=== PATIENT | female | born 1950 | race Asian ===

== ENCOUNTER 2016-12-11 09:44 | Inpatient (IN) | payer MEDICARE, OTHER ==
[~2016-12-11] VITALS: Ht 162.6 cm; Wt 73.4 kg
[2016-12-11] VITALS (21 sets, daily range): BP systolic 123–156; BP diastolic 60–90; PULSE 66–82; RESP 12–20; Ht 162.6 cm; Wt 73.4 kg
[2016-12-11] MEDS ORDERED: POLYMYXIN B 500000 UNIT INJ ONE (12:02)
[2016-12-11] MEDS ORDERED: VANCOMYCIN 1 GM INJ ONE (12:02)
--- NOTE | 2016-12-11 12:56 | HPN ---
Date/Time of Note Date/Time of Note DATE: 12/11/16 TIME: 12:55 Interval H&P Admission Note Pt. seen H&P reviewed: No system changes ANNCY TAVERAS MD Dec 11, 2016 12:56
[2016-12-11] MEDS ORDERED: MIDAZOLAM 1 MG/ML 2 ML INJ ONE (13:07)
[2016-12-11] MEDS ORDERED: morphine SULFATE/PF (10 MG/10 ML) INJ ONE (13:08)
[2016-12-11] MEDS ORDERED: PROPOFOL 20 ML ONE (13:29)
[2016-12-11] MEDS ORDERED: LIDOCAINE 2% (SDV) 5 ML INJ ONE (13:29)
[2016-12-11] MEDS ORDERED: DEXAMETHASONE 4 MG/ML 1 ML INJ ONE (13:30)
[2016-12-11] MEDS ORDERED: METOCLOPRAMIDE 10 MG INJ ONE (13:30)
[2016-12-11] MEDS ORDERED: TRANEXAMIC ACID 1,000 MG in SOD CHLORIDE 0.9% 100 ML IV ONE (13:30)
[2016-12-11] MEDS ORDERED: ONDANSETRON 4 MG INJ ONE (13:30)
[2016-12-11] MEDS ORDERED: CEFAZOLIN 1 GM INJ ONE ×2 (13:33)
[2016-12-11] MEDS ORDERED: EPHEDrine SULFATE 50 MG/5 ML SYG ONE (13:42)
[2016-12-11] MEDS ORDERED: FENTAnyl 50 MCG/ML VIAL IV PRN (14:00)
[2016-12-11] MEDS ORDERED: DIPHENHYDRAMINE 50 MG INJ IV PRN ×2 (14:00→20:00)
[2016-12-11] MEDS ORDERED: MEPERIDINE 25 MG INJ IV PRN (14:00)
[2016-12-11] MEDS ORDERED: ONDANSETRON 4 MG INJ IV PRN (14:00)
[2016-12-11] MEDS ORDERED: PROCHLORPERAZINE 10 MG INJ IV PRN (14:00)
--- NOTE | 2016-12-11 14:22 | RADRPT ---
PROCEDURE: Right knee radiograph. CLINICAL INDICATION: Right knee pain. Preoperative. TECHNIQUE: Single frontal view of the right knee. COMPARISON: None. FINDINGS: There are degenerative changes of the right knee with medial and lateral joint compartment narrowing and osteophytes. There is no fracture or dislocation. IMPRESSION: 1. Moderate degenerative changes of the right knee. 2. Limited single frontal view. RPTAT: QQ .Corky Hagen MD, MD Date Time Electronically viewed and signed by .Corky Hagen MD, on 12/11/2016 14:22 .R/
--- NOTE | 2016-12-11 14:24 | RADRPT ---
PROCEDURE: Left knee radiograph. CLINICAL INDICATION: Left knee pain. Preoperative. TECHNIQUE: Single frontal view of the left knee. COMPARISON: None. FINDINGS: There is a left knee total arthroplasty which appears satisfactory with no evidence of loosening. T here is no fracture or dislocation. IMPRESSION: 1. Left knee total arthroplasty which appears satisfactory. 2. Otherwise normal limited single frontal view of the left knee. RPTAT: QQ .Corky Hagen MD, MD Date Time Electronically viewed and signed by .Corky Hagen MD, on 12/11/2016 14:24 .R/
[2016-12-11] MEDS ORDERED: CEFAZOLIN 1 GM/50 ML (PMX) 50 ML IVPB ONE (15:53)
[2016-12-11] MEDS: HYDROmorphONE (0.2 MG/ML) 10ML SYG IV PRN ×2 (15:56→16:32)
[2016-12-11] MEDS: CEFAZOLIN 1 GM/50 ML (PMX) 50 ML IVPB SCH (15:56)
[2016-12-11] MEDS ORDERED: HYDROCODONE/APAP (10/325) TAB PO PRN ×2 (16:00)
[2016-12-11] MEDS ORDERED: HYDROCODONE/APAP (7.5/325) TAB PO PRN (16:30)
[2016-12-11] MEDS: DEXTROSE 5%-LR 1,000 ML IV SCH (17:55)
[2016-12-11] MEDS ORDERED: HYDROmorphONE 1 MG/ML SYG IV PRN (18:22)
[2016-12-11] MEDS ORDERED: NALOXONE (0.4 MG/ML) INJ IV PRN (18:23)
[2016-12-11] MEDS ORDERED: NALBUPHINE HCL (10 MG/1 ML) INJ IV PRN (18:23)
[2016-12-11] MEDS: HYDROmorphONE 1 MG/ML SYG IV PRN (18:31)
[2016-12-11] MEDS ORDERED: BISACODYL 10 MG SUPP PR PRN (19:30)
[2016-12-11] MEDS ORDERED: NACL 0.9% 3 ML SYG IV SCH (19:30)
[2016-12-11] MEDS ORDERED: DOCUSATE SODIUM 100 MG CAP PO PRN (19:30)
[2016-12-11] MEDS ORDERED: MAGNESIUM HYDROXIDE 30ML CUP PO PRN (19:30)
[2016-12-11] MEDS: FAMOTIDINE 20 MG TAB PO SCH (20:49)
[2016-12-11] MEDS: ACETAMINOPHEN 325 MG TAB PO PRN (20:49)
[2016-12-11] MEDS: ONDANSETRON 4 MG INJ IV PRN (20:54)
[2016-12-12] MEDS: DEXTROSE 5%-LR 1,000 ML IV SCH ×3 (02:37→17:22)
[2016-12-12] MEDS: CEFAZOLIN 1 GM/50 ML (PMX) 50 ML IVPB SCH ×3 (04:49→21:25)
[2016-12-12] MEDS: HYDROmorphONE 1 MG/ML SYG IV PRN (04:52)
[2016-12-12] MEDS: ONDANSETRON 4 MG INJ IV PRN (04:52)
[2016-12-12 05:02] LABS: ADD SCAN DIFF NO
[2016-12-12 05:05] LABS: ABNORMAL IP MESSAGE 1; BASOPHILS % 0.1 % (0.0-2.0); HEMATOCRIT 35.2 % (37.0-47.0); HEMOGLOBIN 11.1 g/dl (12.0-16.0); LYMPHOCYTES # 0.6 10^3/ul (0.8-2.9); LYMPHOCYTES % 6.6 % (15.0-51.0); MEAN CORPUSCULAR HEMOGLOBIN 26.8 pg (29.0-33.0); MEAN CORPUSCULAR HGB CONC 31.5 g/dl (32.0-37.0); MEAN PLATELET VOLUME 9.5 fl (7.4-10.4); MONOCYTE # 0.4 10^3/ul (0.3-0.9); MONOCYTES % 4.5 % (0.0-11.0); NEUTROPHIL # 7.5 10^3/ul (1.6-7.5); NEUTROPHILS % 88.4 % (39.0-77.0); PLATELET COUNT 204 10^3/UL (140-415); RED BLOOD COUNT 4.14 10^6/ul (4.20-5.40); WHITE BLOOD COUNT 8.5 10^3/ul (4.8-10.8)
[2016-12-12 05:21] LABS: POTASSIUM 4.2 mmol/L (3.5-5.1)
[2016-12-12 05:23] LABS: CREATININE 0.6 mg/dl (0.44-1.00)
[2016-12-12 05:24] LABS: PHOSPHORUS 3.3 mg/dl (2.5-4.9)
[2016-12-12 05:25] LABS: CALCIUM 8.3 mg/dl (8.4-10.2); MAGNESIUM 1.9 mg/dl (1.7-2.5)
[2016-12-12 05:48] VITALS: BP 123/60; PULSE 71
[2016-12-12 08:14] VITALS: BP 122/58; RESP 16
--- NOTE | 2016-12-12 08:49 | OPR ---
DATE OF OPERATION: 12/11/2016 SURGEON: Dr. Castaneda SAUSAGE MAKER: ESTEPHANIA Jacobs ANESTHESIA: Regional, plus general. PREOPERATIVE DIAGNOSIS: Severe right knee osteoarthritis. POSTOPERATIVE DIAGNOSIS: Severe right knee osteoarthritis. PROCEDURE PERFORMED: Left total knee replacement arthroplasty using Leal and Nephew posterior stab ilized implant with size 4, a size 2 tibia, a 9-mm liner, a 23-mm patellar button. The compon ents fixed with antibiotic impregnated cement. ESTIMATED BLOOD LOSS: 200 mL. TOURNIQUET TIME: 55 minutes. COMPLICATIONS: None. PROCEDURE: The patient taken to the operating room and general anesthetic given, intubation. A spi nal block was also given. Tourniquet was applied to the right thigh, the right leg was prepped and draped in the usual sterile manner, exsanguinated with an Esmarch bandage, and tourniquet inflated t o 300 mmHg. An anterior incision was made and a medial arthrotomy performed. Severe osteoarthritis was noted in all compartments. The patella was prepared for a 23-mm button. The femur was prepare d with the internal intramedullary guide for size 4 posterior stabilizer and the tibia for a size 2. The joint space was measured and 9 and 11 mm liners were attempted. The 9 mm revealed full extensi on, stable medial and lateral stressing. The 11 mm was too tight. Definitive components were broug ht in. Bone was irrigated with pulsatile lavage. Hemostasis was ascertained using cautery. Compon ent was inserted. Excessive cement was removed meticulously. Tourniquet was deflated. Hemostasis w as ascertained. Good patellar tracking noted. Autotransfusion drain was placed into the joint. Ar throtomy was closed with #2 FiberWire sutures and 0 Vicryl. Skin was closed with shree. Compress ion bandage was applied. Anesthetic was reversed. The patient was taken to recovery in stable cond ition Dictated By: NANCY MCDERMOTT/[place] Conf#: [id number] DID#: [id number]
[2016-12-12] MEDS: FAMOTIDINE 20 MG TAB PO SCH ×2 (09:01→21:25)
--- NOTE | 2016-12-12 09:52 | PN ---
Date/Time of Note Date/Time of Note DATE: 12/12/16 TIME: 09:49 Assessment/Plan VTE Prophylaxis VTE Prophylaxis Intervention: SCD's Lines/Catheters IV Catheter Type (from Nrsg): Peripheral IV Urinary Cath still in place: Yes Reason Cath still needed: other (indicate) (pain, nausea) Assessment/Plan Assessment/Plan [facility] 66-year-old woman familiar to me from hospitalization last year, now day 1 s/p total knee arthroplasty. Moderate nausea this morning, possibly related to the Dilaudid. * Additional dose of Zofran 4mg IV now. * Switch to Zofran 8mg IV q6h * Continue Dilaudid for now * Physical therapy per protocol * Anticoagulation per Dr. Castaneda's routine. Lizette Villegas MD PhD [phone] Subjective 24 Hr Interval Summary Free Text/Dictation Very nauseated this morning, mild pain but responsive to Dilaudid 0.4mg IV. No bowel movement yet. Exam/Review of Systems Vital Signs Vitals Vital Signs Date Time Temp Pulse Resp B/P Pulse Ox O2 Delivery O2 Flow Rate FiO2 12/12/16 08:14 98.3 72 16 122/58 99 12/12/16 05:48 Nasal Cannula 2.0 Intake and Output 12/11/16 12/11/16 12/12/16 15:00 23:00 07:00 Intake Total 1400 ml 1840 ml Output Total 210 ml 1460 ml Balance -210 ml 1400 ml 380 ml Exam Constitutional: alert, oriented, well developed Psych: anxiety, other (nauseated) Head: atraumatic, normocephalic Eyes: EOMI, nl conjunctiva ENMT: mucosa pink and moist Neck: non-tender, supple, No jvd, No masses, No nuchal rigidity, No thyromegaly Respiratory: clear to auscultation, normal air movement Cardiovascular: nl pulses, regular rate and rhythm Gastrointestinal: bowel sounds, nl liver, spleen, non-tender, soft, No ascites, No distended, No firm, No hepatomegaly, No mass, No rebound or guarding, No splenomegaly, No tender Extremities: normal pulses Neurological: 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 II-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, DTR's symmetric, nl mental status, nl speech, nl strength Skin: nl turgor, No diaphoresis, No ecchymosis, No laceration, No puncture, No rash or lesions Lymph: nl lymph nodes Results Result Diagram: 12/12/16 0433 12/12/16 0433 Results 24 hrs Laboratory Tests Test 12/12/16 04:33 White Blood Count 8.5 Red Blood Count 4.14 L Hemoglobin 11.1 L Hematocrit 35.2 L Mean Corpuscular Volume 85.0 Mean Corpuscular Hemoglobin 26.8 L Mean Corpuscular Hemoglobin Concent 31.5 L Red Cell Distribution Width 13.0 Platelet Count 204 Mean Platelet Volume 9.5 Neutrophils % 88.4 H Lymphocytes % 6.6 L Monocytes % 4.5 Eosinophils % 0.0 Basophils % 0.1 Nucleated Red Blood Cells % 0.0 Neutrophils # 7.5 Lymphocytes # 0.6 L Monocytes # 0.4 Eosinophils # 0.0 Basophils # 0.0 Nucleated Red Blood Cells # 0.0 Sodium Level 140 Potassium Level 4.2 Chloride Level 103 Carbon Dioxide Level 26 Anion Gap 15 Blood Urea Nitrogen 14 Creatinine 0.60 Glucose Level 158 Calcium Level 8.3 L Phosphorus Level 3.3 Magnesium Level 1.9 Medications Medications Current Medications Hydromorphone HCl (Dilaudid) 0.4 mg Q2H PRN IV PAIN LEVEL 1-5 Last administered on 12/12/16 04:52; Admin Dose 0.4 MG; Start 12/11/16 at 18:22; Stop 12/12/16 at 13:19 Hydromorphone HCl (Dilaudid) 0.6 mg Q2H PRN IV PAIN LEVEL 6-10; Start 12/11/16 at 18:22; Stop 12/12/16 at 13:19 Diphenhydramine HCl (Benadryl) 12.5 mg Q4H PRN IV PRURITUS; Start 12/11/16 at 20:00; Stop 12/12/16 at 13:19 Nalbuphine HCl (Nubain) 5 mg Q4H PRN IV PRURITUS; Start 12/11/16 at 18:23; Stop 12/12/16 at 13:19 Ondansetron HCl (Zofran Inj) 4 mg Q6H PRN IV NAUSEA AND/OR VOMITING Last administered on 12/12/16 04:52; Admin Dose 4 MG; Start 12/11/16 at 18:23; Stop 12/12/16 at 13:19 Naloxone HCl 0.2 mg 0.2 mg Q2M PRN IV FOR RESP RATE 8 OR LESS; Start 12/11/16 at 18:23; Stop 12/12/16 at 13:19 Dextrose/Lactated Ringer's (D5-Lr) 1,000 ml @ 90 mls/hr Q11H7M IV Last administered on 12/12/16 04:48; Admin Dose 90 MLS/HR; Start 12/11/16 at 15:30 Acetaminophen/ Hydrocodone Bitart ([place] (10/325)) 1 tab Q4H PRN PO PAIN; Start 12/11/16 at 16:00 Acetaminophen/ Hydrocodone Bitart 2 tab 2 tab Q4H PRN PO PAIN; Start 12/11/16 at 16:00 Cefazolin Sodium (Ancef 1 Gm/50 ml (Pmx)) 50 ml @ 100 mls/hr Q8 IVPB Last administered on 12/12/16 04:49; Admin Dose 100 MLS/HR; Start 12/11/16 at 22:00 Acetaminophen/ Hydrocodone Bitart ([place] (7.5-325)) 1 tab Q4H PRN PO PAIN LEVEL 4-6; Start 12/11/16 at 16:30 Acetaminophen/ Hydrocodone Bitart ([place] (7.5-325)) 2 tab Q4H PRN PO PAIN LEVEL 6-10; Start 12/11/16 at 16:30 Acetaminophen (Tylenol Tab) 650 mg Q6H PRN PO PAIN LEVEL 1-3 OR FEVER Last administered on 12/11/16 20:49; Admin Dose 650 MG; Start 12/11/16 at 19:30 Docusate Sodium (Colace) 100 mg Q12H PRN PO CONSTIPATION; Start 12/11/16 at 19: 30 Magnesium Hydroxide (Milk Of Mag) 30 ml DAILY PRN PO CONSTIPATION; Start at 19:30 Bisacodyl (Dulcolax Supp) 10 mg DAILY PRN [place] CONSTIPATION; Start 12/11/16 at 19 :30 Famotidine (Pepcid) 20 mg Q12 PO Last administered on 12/12/16 09:01; Admin Dose 20 MG; Start 12/11/16 at 21:00 JANET VILLEGAS M.D. Dec 12, 2016 09:52
[2016-12-12] MEDS ORDERED: ONDANSETRON 4 MG INJ IV STA (09:53)
[2016-12-12] MEDS ORDERED: ONDANSETRON 4 MG INJ IV PRN (12:23)
[2016-12-12] MEDS: ONDANSETRON INJ 8 MG in DEXTROSE 5% 50 ML IV PRN (14:41)
[2016-12-12] MEDS: HYDROCODONE/APAP (7.5/325) TAB PO PRN ×2 (15:39→21:25)
[2016-12-12 19:28] VITALS: BP 166/74; RESP 20
[2016-12-13] MEDS: ONDANSETRON INJ 8 MG in DEXTROSE 5% 50 ML IV PRN (03:26)
[2016-12-13] MEDS ORDERED: HYDROmorphONE 2 MG TAB PO PRN (04:30)
[2016-12-13] MEDS: CEFAZOLIN 1 GM/50 ML (PMX) 50 ML IVPB SCH ×3 (05:27→21:34)
[2016-12-13] MEDS: DEXTROSE 5%-LR 1,000 ML IV SCH ×3 (05:27→23:05)
[2016-12-13 07:41] VITALS: BP 133/69; RESP 14
[2016-12-13] MEDS: FAMOTIDINE 20 MG TAB PO SCH ×2 (08:39→20:52)
[2016-12-13] MEDS: ACETAMINOPHEN 325 MG TAB PO PRN (08:48)
[2016-12-13] MEDS ORDERED: HYDROCODONE/APAP (10/325) TAB PO PRN (09:30)
[2016-12-13] MEDS: HYDROCODONE/APAP (10/325) TAB PO PRN ×3 (10:27→21:37)
--- NOTE | 2016-12-13 18:30 | PN ---
Date/Time of Note Date/Time of Note DATE: 12/13/16 TIME: 18:22 Assessment/Plan VTE Prophylaxis VTE Prophylaxis Intervention: other (xarelto) Lines/Catheters IV Catheter Type (from Nrs): Peripheral IV Urinary Cath still in place: Yes Reason Cath still needed: other (indicate) (To be discontinued tomorrow AM) Assessment/Plan Assessment/Plan [facility] 66-year-old woman familiar to me from hospitalization last year, now day two s/ p total right knee arthroplasty. Big improvement today, with resolution of nausea, and pain well-controlled. * Zofran 8mg IV q6h * Switch Dilaudid to PO q4h PRN for severe pain. * Physical therapy per protocol * Working on placement tomorrow to [facility] for post-operative rehab. * Full-code * Famotidine for GI prophylaxis; Xarelto for DVT prevention (OK with Dr. Castaneda). Lizette Villegas MD PhD [phone] Subjective 24 Hr Interval Summary Free Text/Dictation Feeling much better. Still not much appetite, and no bowel movement in three days. But no nausea now, and pain well-tolerated, even with ambulation this morning. Exam/Review of Systems Vital Signs Vitals Vital Signs Date Time Temp Pulse Resp B/P Pulse Ox O2 Delivery O2 Flow Rate FiO2 12/13/16 07:41 98.6 81 14 133/69 99 12/12/16 05:48 Nasal Cannula 2.0 Intake and Output 12/12/16 12/12/16 12/13/16 15:00 23:00 07:00 Intake Total 212 ml 1550 ml 1014 ml Output Total 900 ml 1570 ml Balance 212 ml 650 ml -556 ml Exam Constitutional: alert, oriented, well developed Psych: Cheerful, conversant, normal affect and executive function Head: atraumatic, normocephalic Eyes: EOMI, nl conjunctiva ENMT: mucosa pink and moist Neck: non-tender, supple, no jvd Respiratory: clear to auscultation, normal air movement Cardiovascular: nl pulses, regular rate and rhythm Gastrointestinal: bowel sounds, nl liver, spleen, non-tender, soft, normal bowel sounds. 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 Lymph: nl lymph nodes Results Result Diagram: 12/12/1643212/12/16432 Medications Medications Current Medications Dextrose/Lactated Ringer's 1,000 ml @ 90 mls/hr Q11H7M IV Last administered on 12/13/16 05:27; Admin Dose 90 MLS/HR; Start 12/11/16 at 15:30 Cefazolin Sodium (Ancef 1 Gm/50 ml (Pmx)) 50 ml @ 100 mls/hr Q8 IVPB Last administered on 12/13/16 14:54; Admin Dose 100 MLS/HR; Start 12/11/16 at 22:00 Acetaminophen (Tylenol Tab) 650 mg Q6H PRN PO PAIN LEVEL 1-3 OR FEVER Last administered on 12/13/16 08:48; Admin Dose 650 MG; Start 12/11/16 at 19:30 Docusate Sodium (Colace) 100 mg Q12H PRN PO CONSTIPATION Last administered on 10:01; Admin Dose 100 MG; Start 12/11/16 at 19:30 Magnesium Hydroxide (Milk Of Mag) 30 ml DAILY PRN PO CONSTIPATION; Start at 19:30 Bisacodyl (Dulcolax Supp) 10 mg DAILY PRN [place] CONSTIPATION; Start 12/11/16 at 19 :30 Famotidine 20 mg 20 mg Q12 PO Last administered on 12/13/16 08:39; Admin Dose 20 MG; Start 12/11/16 at 21:00 Ondansetron HCl/ Dextrose (Zofran Inj/D5W) 54 ml @ 212 mls/hr Q6H PRN IV NAUSEA AND/OR VOMITING Last administered on 12/13/16 03:26; Admin Dose 212 MLS/ HR; Start 12/12/16 at 12:23 Hydromorphone HCl (Dilaudid) 1 mg Q4H PRN PO PAIN; Start 12/13/16 at 04:30 Acetaminophen/ Hydrocodone Bitart ([place] (10/325)) 1 tab Q4H PRN PO PAIN Last administered on 12/13/16 14:54; Admin Dose 1 TAB; Start 12/13/16 at 09:30 Acetaminophen/ Hydrocodone Bitart ([place] ()) 2 tab Q4H PRN PO PAIN; Start 12/13/16 at 09:30 JANET VILLEGAS M.D. Dec 13, 2016 18:30
[2016-12-13] MEDS ORDERED: RIVAROXABAN 10 MG TABLET PO SCH (19:00)
[2016-12-13 19:18] VITALS: BP 128/61; RESP 18
[2016-12-14 05:39] LABS: ADD SCAN DIFF NO
[2016-12-14 05:48] LABS: BASOPHILS % 0.3 % (0.0-2.0); EOSINOPHILS # 0.1 10^3/ul (0.0-0.5); HEMATOCRIT 33.6 % (37.0-47.0); HEMOGLOBIN 10.7 g/dl (12.0-16.0); LYMPHOCYTES # 0.7 10^3/ul (0.8-2.9); LYMPHOCYTES % 11.6 % (15.0-51.0); MEAN CORPUSCULAR HEMOGLOBIN 27.1 pg (29.0-33.0); MEAN CORPUSCULAR HGB CONC 31.8 g/dl (32.0-37.0); MEAN CORPUSCULAR VOLUME 85.1 fl (82.0-101.0); MEAN PLATELET VOLUME 9.9 fl (7.4-10.4); MONOCYTE # 0.6 10^3/ul (0.3-0.9); MONOCYTES % 9.2 % (0.0-11.0); NEUTROPHIL # 4.7 10^3/ul (1.6-7.5); NEUTROPHILS % 77.6 % (39.0-77.0); PLATELET COUNT 178 10^3/UL (140-415); RED BLOOD COUNT 3.95 10^6/ul (4.20-5.40); RED CELL DISTRIBUTION WIDTH 13.1 % (11.5-14.5); WHITE BLOOD COUNT 6.1 10^3/ul (4.8-10.8)
[2016-12-14] MEDS: HYDROCODONE/APAP (10/325) TAB PO PRN ×2 (05:51→15:24)
[2016-12-14] MEDS: CEFAZOLIN 1 GM/50 ML (PMX) 50 ML IVPB SCH (06:11)
[2016-12-14 06:19] LABS: POTASSIUM 3.5 mmol/L (3.5-5.1)
[2016-12-14 06:22] LABS: CREATININE 0.61 mg/dl (0.44-1.00)
[2016-12-14 08:02] VITALS: BP 154/70; RESP 18
[2016-12-14] MEDS: FAMOTIDINE 20 MG TAB PO SCH (09:00)
[2016-12-14] MEDS ORDERED: POLYETHYLENE GLYCOL 17 GM PACKET PO SCH (10:00)
[2016-12-14] MEDS: DEXTROSE 5%-LR 1,000 ML IV SCH (10:12)
--- NOTE | 2016-12-14 13:33 | PN ---
Date/Time of Note Date/Time of Note DATE: 12/14/16 TIME: 13:21 Assessment/Plan VTE Prophylaxis VTE Prophylaxis Intervention: other (xarelto ) Lines/Catheters IV Catheter Type (from Nrsg): [place] Urinary Cath still in place: No Reason Cath still needed: other (indicate) Assessment/Plan Assessment/Plan 66-year-old woman: 1. S/p right TKA POD#3 Going to SNF Zofran pr N/V [place] pr pain Dilaudid to PO q4h PRN for severe pain. PT 2. Urinary Retention: d/c Blood today and urinating. Prophylaxis: Famotidine for GI prophylaxis; Xarelto for DVT prevention. Disposition: d/c to SNF today with Xarelto for dvt ppx and CPM for SNF Full-code Subjective 24 Hr Interval Summary Free Text/Dictation Patient doing better, tolerating po well Blood removed and patient wants to urinate CPM in place Pain controlled with [place] Exam/Review of Systems Vital Signs Vitals Vital Signs Date Time Temp Pulse Resp B/P Pulse Ox O2 Delivery O2 Flow Rate FiO2 12/14/16 08:02 98.5 86 18 154/70 97 12/12/16 05:48 Nasal Cannula 2.0 Intake and Output 12/13/16 12/13/16 12/14/16 15:00 23:00 07:00 Intake Total 750 ml 500 ml Output Total 1000 ml 1000 ml Balance -250 ml -500 ml Exam Constitutional: alert, oriented, well developed Respiratory: clear to auscultation, normal air movement Cardiovascular: nl pulses, regular rate and rhythm Gastrointestinal: non-tender, soft Musculoskeletal: other (CPM in place s/p right TKA ) Extremities: normal pulses 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, nl mental status, nl speech, other (s/p right TKA ) Results Result Diagram: 12/14/1642712/14/16427 Results 24 hrs Laboratory Tests Test 12/14/16 04:28 White Blood Count 6.1 # Red Blood Count 3.95 L Hemoglobin 10.7 L Hematocrit 33.6 L Mean Corpuscular Volume 85.1 Mean Corpuscular Hemoglobin 27.1 L Mean Corpuscular Hemoglobin Concent 31.8 L Red Cell Distribution Width 13.1 Platelet Count 178 Mean Platelet Volume 9.9 Neutrophils % 77.6 H Lymphocytes % 11.6 L Monocytes % 9.2 Eosinophils % 1.0 Basophils % 0.3 Nucleated Red Blood Cells % 0.0 Neutrophils # 4.7 Lymphocytes # 0.7 L Monocytes # 0.6 Eosinophils # 0.1 Basophils # 0.0 Nucleated Red Blood Cells # 0.0 Sodium Level 137 Potassium Level 3.5 Chloride Level 102 Carbon Dioxide Level 30 Anion Gap 9 # Blood Urea Nitrogen 9 Creatinine 0.61 Glucose Level 115 # Calcium Level 8.0 L Medications Medications Current Medications Dextrose/Lactated Ringer's 1,000 ml @ 90 mls/hr Q11H7M IV Last administered on 12/13/16 05:27; Admin Dose 90 MLS/HR; Start 12/11/16 at 15:30 Cefazolin Sodium (Ancef 1 Gm/50 ml (Pmx)) 50 ml @ 100 mls/hr Q8 IVPB Last administered on 12/14/16 06:11; Admin Dose 100 MLS/HR; Start 12/11/16 at 22:00 Acetaminophen (Tylenol Tab) 650 mg Q6H PRN PO PAIN LEVEL 1-3 OR FEVER Last administered on 12/13/16 08:48; Admin Dose 650 MG; Start 12/11/16 at 19:30 Docusate Sodium (Colace) 100 mg Q12H PRN PO CONSTIPATION Last administered on 10:01; Admin Dose 100 MG; Start 12/11/16 at 19:30 Magnesium Hydroxide (Milk Of Mag) 30 ml DAILY PRN PO CONSTIPATION Last administered on 12/14/16 05:51; Admin Dose 30 ML; Start 12/11/16 at 19:30 Bisacodyl (Dulcolax Supp) 10 mg DAILY PRN [place] CONSTIPATION Last administered on 12/13/16 20:52; Admin Dose 10 MG; Start 12/11/16 at 19:30 Famotidine 20 mg 20 mg Q12 PO Last administered on 12/13/16 20:52; Admin Dose 20 MG; Start 12/11/16 at 21:00 Ondansetron HCl/ Dextrose (Zofran Inj/D5W) 54 ml @ 212 mls/hr Q6H PRN IV NAUSEA AND/OR VOMITING Last administered on 12/13/16 03:26; Admin Dose 212 MLS/ HR; Start 3/25/17 at 12:23 Hydromorphone HCl (Dilaudid) 1 mg Q4H PRN PO PAIN; Start 12/13/16 at 04:30 Acetaminophen/ Hydrocodone Bitart ([place] (10/325)) 1 tab Q4H PRN PO PAIN Last administered on 12/14/16 05:51; Admin Dose 1 TAB; Start 12/13/16 at 09:30 Acetaminophen/ Hydrocodone Bitart ([place] (10/325)) 2 tab Q4H PRN PO PAIN; Start 12/13/16 at 09:30 Polyethylene Glycol (Miralax) 17 gm BID PO Last administered on 12/14/16 10:00 ; Admin Dose 17 GM; Start 12/14/16 at 10:00 PINA LACEY Dec 14, 2016 13:31
--- NOTE | 2016-12-14 13:34 | PDOCDIS ---
Discharge Instructions CONDITION Patient Condition: Stable HOME CARE INSTRUCTIONS: Diet Instructions: RegularSpecial Diet: regular ACTIVITY: Activity Restrictions: Slowly Increase Activity Rest between Activity Avoid heavy lifting Do not Drive Do not operate Machinery Do not operate Power Tool Avoid Heavy Housework Bathing Restrictions: ShowerActivity Restrictions Comment: waterproof dressing to surgical incision at all times FOLLOW UP/APPOINTMENTS Appointments Follow up with PCP within [address] Castaneda in 1 week PINA LACEY Dec 14, 2016 13:34
== END 2016-12-14 16:50 | DRG 470 ==
LOC: REC 09:44 → MS1 17:45
PROVIDERS: ADMIT Specialist; ATTEND Specialist
PROC: 0SRC0J9 Replacement of Right Knee Joint with Synthetic Substitute, Cemented, Open Approach (ICD-10-PCS; principal; 2016-12-11 12:30)
DX: M17.11 Unilateral primary osteoarthritis, right knee (principal); R33.9 Retention of urine, unspecified
CPT/HCPCS: 73560; 80048; 83735; 84100; 85025; 87081; 88304; 88311; 97110; 97116; 97163; 97530; J0690; J1100; J1170; J2175; J2250; J2274; J2405; J2765; J3370; J7121

== ENCOUNTER → 2019-01-23 | Outpatient (CLI) | payer OTHER | END | disposition home or self-care (01) | LOC: NUC 12:51 | PROVIDERS: ATTEND Internal Medicine | DX: E05.90 Thyrotoxicosis, unspecified without thyrotoxic crisis or storm (principal) | CPT/HCPCS: 79005; A9517 ==